=== PATIENT | female | born 2000 | race Caucasian/White ===

== ENCOUNTER 2022-01-18 12:25 | Outpatient (CLI) | payer MEDICAID ==
[~2022-01-18] VITALS: Ht 165.1 cm; Wt 62.3 kg
--- NOTE | 2022-01-18 12:35 | NUR ---
Pt arrived on unit ambulatory and with concerns for constant midline and lower left back pain since this morning. Pt denies any contractions, leaking of fluid or vaginal bleeding and reports normal movement. EFM and toco monitors started. Vital signs WNL. Dr. Borges notified. See physician notification for details.
[2022-01-18] MEDS ORDERED: PRENATAL (12:44)
[2022-01-18 13:13] LABS: COLLECTION METHOD CLEAN CATCH
[2022-01-18 13:30] VITALS: BP 102/67; PULSE 99; TEMP 97.9
[2022-01-18 13:37] LABS: BUDDING YEAST Present (NOT PRESENT); MUCOUS Present (NOT PRESENT); SQUAMOUS EPITHELIAL 0-2 /hpf (0-10); URINE BACTERIA Rare /hpf (NONE SEEN); URINE RBC 0-2 /hpf (0-2)
[2022-01-18 13:41] LABS: URINE APPEARANCE Hazy (CLEAR/HAZY); URINE COLOR Yellow (YELLOW)
[2022-01-18 13:42] LABS: PH 7.5 (5.0-8.5); URINE BLOOD Negative (NEGATIVE); URINE GLUCOSE Negative (NEGATIVE); URINE KETONE Negative (NEGATIVE); URINE NITRATE Negative (NEGATIVE); URINE PROTEIN(semi-quant) Negative (NEGATIVE); URINE UROBILINOGEN >=8.0 E.U/dL (0.2-1.0)
--- NOTE | 2022-01-18 14:00 | NUR ---
Follow up care and recommendations from Dr. Borges reviewed with pt and mother at the bedside. Both verbalized an understanding, agreed with the plan and states no questions or concerns at this time.
[2022-01-18 14:04] VITALS: BP 114/70; PULSE 86
== END 2022-01-18 14:15 | disposition home or self-care (01) ==
LOC: LDRO 12:25
PROVIDERS: Obstetrics & Gynecology
DX: O26.892 Other specified pregnancy related conditions, second trimester (principal); M54.9 Dorsalgia, unspecified; Z3A.29 29 weeks gestation of pregnancy